=== PATIENT | female | born 1955 | race Caucasian/White ===

== ENCOUNTER 2021-08-31 10:35 | Inpatient (IN) | payer OTHER ==
[~2021-08-31] VITALS: Ht 154.9 cm; Wt 80.3 kg
[2021-08-31 10:35] VITALS: BP_SYST 134
[2021-08-31] MEDS ORDERED: NALOXONE HCL 2 MG/2 ML SYR ONE (11:07)
[2021-08-31 11:15] LABS: BASOPHILS # (AUTO) 0.1 K/uL (0.0-0.2); BASOPHILS % (AUTO) 0.8 % (0.0-2.0); EOSINOPHILS # (AUTO) 0.2 K/uL (0.0-0.4); EOSINOPHILS % (AUTO) 1.8 % (0.0-4.0); HEMATOCRIT 34.1 % (36-48); HEMOGLOBIN 11.5 g/dL (12.0-16.0); LYMPHOCYTES # (AUTO) 3.6 K/uL (1.0-5.5); LYMPHOCYTES % (AUTO) 27.7 % (20.5-51.5); MEAN CORPUSCULAR HEMOGLOBIN 30 pg (27-31); MEAN CORPUSCULAR HGB CONC 34 % (32-36); MEAN CORPUSCULAR VOLUME 88 fL (79.0-98.0); MONOCYTES # (AUTO) 1.4 K/uL (0.0-1.0); MONOCYTES % (AUTO) 10.9 % (1.7-9.3); NEUTROPHILS # (AUTO) 7.6 K/uL (1.8-7.7); NEUTROPHILS % (AUTO) 58.8 % (40.0-70.0); PLATELET COUNT (AUTO) 308 K/uL (130-430); RED CELL DISTRIBUTION WIDTH 14.1 % (9.0-15.0)
[2021-08-31] MEDS ORDERED: NALOXONE HCL 2 MG/2 ML SYR IVP ONE ×2 (11:15)
[2021-08-31 11:25] LABS: ANION GAP 15 (5-15); CHLORIDE 98 mmol/L (98-107); CREATININE 0.97 mg/dL (0.55-1.30); GLUCOSE 227 mg/dL (70-99); POTASSIUM 3.8 mmol/L (3.5-5.1); SODIUM SERUM 132 mmol/L (136-145); UREA NITROGEN, BLOOD 17 mg/dL (8-21)
[2021-08-31 11:27] LABS: GFR AFRICAN AMERICAN 74 mL/min (>90)
[2021-08-31] MEDS ORDERED: levETIRAcetam 1,000 MG IV BAG 100 ML IV ONE (11:30)
[2021-08-31 11:34] LABS: ALANINE AMINOTRANSFERASE 23 U/L (12-78); ALBUMIN 3.8 g/dL (3.4-4.8); ASPARTATE AMINOTRANSFERASE 15 U/L (10-37); TOTAL BILIRUBIN 0.2 mg/dL (0.0-1.0)
[2021-08-31] MEDS ORDERED: IOHEXOL 350 mgI/mL, 150 ML INFUS..BTL IV ONE (11:36)
[2021-08-31] MEDS ORDERED: LIP20 PO (14:41)
[2021-08-31] MEDS ORDERED: CLOP75TA32 PO (14:41)
[2021-08-31] MEDS ORDERED: ASPI-858 PO (14:41)
[2021-08-31] MEDS ORDERED: INSU100V SQ (14:41)
[2021-08-31] MEDS ORDERED: HYDR-4038 PO (14:41)
[2021-08-31] MEDS ORDERED: INSU100V9 SQ ×2 (14:41)
[2021-08-31] MEDS ORDERED: CARV25TA55 PO (14:41)
[2021-08-31] MEDS ORDERED: METF-518 PO (14:41)
[2021-08-31] MEDS ORDERED: INSULIN REGULAR, HUMAN 100 UNITS/ML, 10 ML VIAL (humuLIN R) SUBCUT PRN (15:00)
[2021-08-31] MEDS ORDERED: DEXTROSE 50% JECT 50 ML DISP.SYRIN IVP PRN (15:00)
[2021-08-31] MEDS: D5NS 1,000 ML IV SCH (15:00)
[2021-08-31] MEDS ORDERED: levETIRAcetam 500 MG IV PREMIX 100 ML IV ONE (16:00)
[2021-08-31] MEDS ORDERED: ONDANSETRON HCL 4 MG/2 ML VIAL IVP PRN (16:00)
[2021-08-31 16:04] VITALS: BP_SYST 104
[2021-08-31 20:00] VITALS: BP_SYST 121
[2021-08-31] MEDS: levETIRAcetam 500 MG IV PREMIX 100 ML IV SCH (22:46)
[2021-08-31] MEDS: CARVEDILOL 25 MG TABLET (COREG) PO SCH (22:47)
[2021-08-31] MEDS: hydrALAZINE HCL 25 MG TABLET PO SCH (22:50)
[2021-09-01] MEDS: ACETAMINOPHEN 325 MG TABLET PO PRN (00:42)
[2021-09-01] MEDS: D5NS 1,000 ML IV SCH ×4 (01:17→20:27)
[2021-09-01 01:26] VITALS: BP_SYST 95
[2021-09-01 08:00] VITALS: BP_SYST 130
[2021-09-01] MEDS ORDERED: CLOPIDOGREL BISULFATE 75 MG TABLET PO SCH (09:00)
[2021-09-01] MEDS ORDERED: ASPIRIN 325 MG TABLET PO SCH (09:00)
[2021-09-01] MEDS: CARVEDILOL 25 MG TABLET (COREG) PO SCH ×2 (09:00→20:24)
[2021-09-01] MEDS: levETIRAcetam 500 MG IV PREMIX 100 ML IV SCH ×2 (09:30→20:25)
[2021-09-01] MEDS: ATORVASTATIN 20 MG TABLET PO SCH (09:31)
[2021-09-01] MEDS: hydrALAZINE HCL 25 MG TABLET PO SCH ×2 (09:32→20:23)
[2021-09-01 11:00] VITALS: BP_SYST 111
[2021-09-01 15:00] VITALS: BP_SYST 123
[2021-09-01 19:41] VITALS: BP_SYST 120
[2021-09-01] MEDS ORDERED: ALPRAZolam 0.25 MG TABLET PO ONE (22:00)
[2021-09-01 23:00] VITALS: BP_SYST 128; BP_SYST 91
[2021-09-02] MEDS: ACETAMINOPHEN 325 MG TABLET PO PRN (00:17)
[2021-09-02] MEDS: D5NS 1,000 ML IV SCH (06:15)
[2021-09-02 06:39] LABS: BASOPHILS % (AUTO) 0.4 % (0.0-2.0); EOSINOPHILS # (AUTO) 0.2 K/uL (0.0-0.4); EOSINOPHILS % (AUTO) 3.2 % (0.0-4.0); HEMATOCRIT 31.6 % (36-48); HEMOGLOBIN 10.8 g/dL (12.0-16.0); LYMPHOCYTES # (AUTO) 2.6 K/uL (1.0-5.5); LYMPHOCYTES % (AUTO) 34.4 % (20.5-51.5); MEAN CORPUSCULAR HEMOGLOBIN 30 pg (27-31); MEAN CORPUSCULAR HGB CONC 34 % (32-36); MEAN CORPUSCULAR VOLUME 89 fL (79.0-98.0); MONOCYTES # (AUTO) 0.6 K/uL (0.0-1.0); MONOCYTES % (AUTO) 8.6 % (1.7-9.3); NEUTROPHILS % (AUTO) 53.4 % (40.0-70.0); PLATELET COUNT (AUTO) 266 K/uL (130-430); RED BLOOD CELL COUNT(AUTO) 3.56 MIL/uL (4.2-6.2); RED CELL DISTRIBUTION WIDTH 14.1 % (9.0-15.0); WHITE BLOOD COUNT (AUTO) 7.6 K/uL (4.8-10.8)
[2021-09-02 07:09] LABS: ALBUMIN 3.1 g/dL (3.4-4.8); CREATININE 0.92 mg/dL (0.55-1.30); POTASSIUM 3.4 mmol/L (3.5-5.1); TOTAL BILIRUBIN 0.5 mg/dL (0.0-1.0)
[2021-09-02 08:00] VITALS: BP_SYST 133
[2021-09-02] MEDS: ATORVASTATIN 20 MG TABLET PO SCH (08:36)
[2021-09-02] MEDS: CARVEDILOL 25 MG TABLET (COREG) PO SCH (08:36)
[2021-09-02] MEDS: levETIRAcetam 500 MG IV PREMIX 100 ML IV SCH (08:37)
[2021-09-02] MEDS: hydrALAZINE HCL 25 MG TABLET PO SCH (08:37)
[2021-09-02] MEDS ORDERED: LEVE500T21 PO (08:43)
[2021-09-02 11:30] VITALS: BP_SYST 114
[2021-09-02 14:18] VITALS: BP_SYST 114
== END 2021-09-02 14:55 | disposition home or self-care (01) | DRG 101 ==
LOC: SED 10:35 → STU 13:24
PROVIDERS: ADMIT Internal Medicine Hospice and Palliative Medicine; ATTEND Internal Medicine Hospice and Palliative Medicine
DX: G40.409 Other generalized epilepsy and epileptic syndromes, not intractable, without status epilepticus (principal); E11.9 Type 2 diabetes mellitus without complications; I10 Essential (primary) hypertension; Z20.822 Contact with and (suspected) exposure to COVID-19; D72.829 Elevated white blood cell count, unspecified; Z79.02 Long term (current) use of antithrombotics/antiplatelets; Z79.4 Long term (current) use of insulin; Z79.82 Long term (current) use of aspirin; Z79.899 Other long term (current) drug therapy; Z86.73 Personal history of transient ischemic attack (TIA), and cerebral infarction without residual deficits
CPT/HCPCS: 36415; 70450-TC; 70496; 70498; 71045; 76376; 80053; 82962; 84484; 85025; 87081; 93306; 95816; 96365; 96375; 99285; G0378; J1815; J1953; J2310; J2405; Q9967